=== PATIENT | female | born 1935 | race African-American/Black ===

== ENCOUNTER 2016-08-20 10:29 | Emergency (ER) | payer BC ==
[~2016-08-20 10:29] MED LIST: ACET500CAP PO; ASAEC PO; CALTRAT600 PO; CRESTOR5 MG PO; FOLIC PO; HCTZ50B PO; HYDROCHLOROT50 MG PO; LIOR10 PO; LISINOPRIL40 MG PO; LOP50 PO; MTX2.5 PO; NEUR300 PO; OTC IRON TAB PO; P5 PO; PLAQ200B PO; SPIRO25 PO; SYN.05 PO; TYLENOL ARTH650 MG PO
== END 2016-08-20 16:13 | disposition home or self-care (01) ==
LOC: ER 10:29
DX: M25.552 Pain in left hip (principal); M54.30 Sciatica, unspecified side; Z79.82 Long term (current) use of aspirin; Z79.899 Other long term (current) drug therapy
CPT/HCPCS: 72192; 96374; 99284; A9270-GY; J2930